=== PATIENT | female | born 1970 | race Hispanic/Latino ===

== ENCOUNTER 2022-06-02 06:17 | Day surgery (SDC) | payer OTHER ==
[2022-05-30 11:18] VITALS: BP 143/79
[2022-06-02] VITALS (15 sets, daily range): BP systolic 111–149; BP diastolic 63–84
[2022-06-02] MEDS ORDERED: BUPIVACAINE/PF 0.5% 30ML VIAL ONE (07:06)
[2022-06-02] MEDS ORDERED: LACTATED RINGERS 1000ML 1,000 ML IV ONE (07:10)
[2022-06-02] MEDS ORDERED: LIDOCAINE 1%-EPI 1:100,000 20 ML VIAL IJ SCH (08:30)
[2022-06-02] MEDS ORDERED: GLYCOPYRROLATE 1 MG/5 ML SYRINGE ONE (08:44)
[2022-06-02] MEDS ORDERED: PROPOFOL 10 MG/ML 20ML VIAL IV ONE (08:44)
[2022-06-02] MEDS ORDERED: NEOSTIGMINE 5MG/5ML SYR IV ONE (08:44)
[2022-06-02] MEDS ORDERED: DEXAMETHASONE SOD PHOSPHATE 10MG/ML 1ML VIAL ONE (08:44)
[2022-06-02] MEDS ORDERED: SUCCINYLCHOLINE 200MG/10ML SYR ONE (08:44)
[2022-06-02] MEDS ORDERED: ROCURONIUM 10MG/1ML SYR 10 MG/ML ML ONE (08:44)
[2022-06-02] MEDS ORDERED: LIDOCAINE PF 100MG/5ML (2%) SYRINGE 5ML ONE (08:44)
[2022-06-02] MEDS ORDERED: ONDANSETRON 4MG INJ ONE ×2 (08:44→09:51)
[2022-06-02] MEDS ORDERED: FENTANYL CITRATE PF 50 MCG/1 ML 2ML VIAL ONE (08:45)
[2022-06-02] MEDS ORDERED: OXYMETAZOLINE HCL SPRAY 15 ML BOTTLE ONE (08:45)
[2022-06-02] MEDS ORDERED: EPINEPHRINE 1 MG/ML 30ML VIAL IJ ONE (08:46)
[2022-06-02] MEDS ORDERED: MEPERIDINE-PF 25 MG/ML SYG ONE (09:41)
== END 2022-06-02 11:20 | disposition home or self-care (01) ==
LOC: DAH 06:17
PROVIDERS: ATTEND Otolaryngology Plastic Surgery within the Head & Neck
DX: J34.3 Hypertrophy of nasal turbinates (principal); J35.01 Chronic tonsillitis; J35.3 Hypertrophy of tonsils with hypertrophy of adenoids; J34.89 Other specified disorders of nose and nasal sinuses
CPT/HCPCS: 87426; 81025; 30140; 42821; A6260; J7030; J7120; J3010; J3490 ×2; J0330; J1100; J2710; J0171; J2001; J2704; J2405 ×2; J1030; J2175; A4649; A4215; A4223; A4222; A4221; A4663